=== PATIENT | female | born 2000 | race Caucasian/White ===

== ENCOUNTER 2024-12-08 11:20 | Inpatient (IN) | payer OTHER ==
[2024-12-08] MEDS: ELECTROLYTE-148 SOLN 1,000 ML IV SCH (13:00)
[2024-12-08 13:21] VITALS: BMI 43.0
[2024-12-08 14:26] LABS: ABSOLUTE IMMATURE GRANULOCYTES 0.13 x10^3/uL (0.0-0.031); BASOPHILS # 0.04 x10^3/uL (0.01-0.08); EOSINOPHIL % 0.4 % (0.7-5.8); EOSINOPHILS # 0.05 x10^3/uL (0.04-0.36); MCHC 33.3 g/dl (32.2-35.5); MEAN CELL VOLUME 88.3 fl (79.4-94.8); MEAN PLT VOLUME 12.2 fl (9.4-12.3); MONOCYTE # 0.62 x10^3/uL (0.24-0.86); MONOCYTE % 4.9 % (4.7-12.5); RDW 14.8 % (12.1-16.5)
[2024-12-08 14:45] LABS: INR 0.97 (0.83-1.09); PROTHROMBIN TIME (PATIENT) 10.6 SEC (9.7-13.0)
[2024-12-08 14:47] LABS: ACTIVATED PTT 31.6 SECONDS (25.2-36.5); GLUCOSE,RANDOM 75.0 mg/dL (74-106)
[2024-12-08 14:48] LABS: CO2 22.0 mmol/L (21-32)
[2024-12-08 14:53] LABS: CREATININE 0.56 mg/dL (0.55-1.3)
[2024-12-08] MEDS: OXYTOCIN 30 UNITS in 0.9% NS 30 UNIT/500 ML INFUS.BAG IVPB SCH (18:00)
[2024-12-08] MEDS ORDERED: OXYTOCIN 30 UNITS in 0.9% NS 30 UNIT/500 ML INFUS.BAG IVPB ONE (18:02)
[2024-12-08] MEDS ORDERED: OXYTOCIN 30 UNITS in 0.9% NS 30 UNIT/500 ML INFUS.BAG IVPB SCH (18:45)
[2024-12-08 20:20] LABS: HIV INTERPRETATION NEGATIVE (NEGATIVE)
[2024-12-08] MEDS ORDERED: FENTANYL/BUPIVACAINE/NS/PF - PCEA - 50 ML DISP.SYRIN EP ONE (23:45)
[2024-12-09] MEDS: FENTANYL/BUPIVACAINE/NS/PF - PCEA - 50 ML DISP.SYRIN EP SCH (00:15)
[2024-12-09] MEDS ORDERED: NALOXONE HCL 0.4 MG/ML VIAL IVPUSH PRN (00:33)
[2024-12-09] MEDS ORDERED: OXYTOCIN 20 UNITS in 0.9% NS 20 UNIT/1,000 ML INFUS.BAG IV ONE (02:32)
[2024-12-09] MEDS ORDERED: AMPICILLIN SODIUM 2 GM VIAL ONE (03:24)
[2024-12-09] MEDS ORDERED: FENTANYL/BUPIVACAINE/NS/PF - PCEA - 50 ML DISP.SYRIN EP ONE ×2 (03:24→06:22)
[2024-12-09] MEDS: AMPICILLIN - 2 GM in SODIUM CHLORIDE 100 ML IVPB ONE (03:48)
[2024-12-09] MEDS ORDERED: FENTANYL CITRATE/PF 50 MCG/ML VIAL ONE (09:55)
[2024-12-09] MEDS: METHYLERGONOVINE MALEATE 0.2 MG/1 ML AMP IM PRN (10:30)
[2024-12-09] MEDS ORDERED: LIDOCAINE HCL 1% PRESERVATIVE FREE - 30ML VIAL ONE (10:32)
[2024-12-09] MEDS ORDERED: IBUPROFEN (CALDOLOR) 800 MG/200 ML PREMIX BAGS IVPB ONE (10:34)
[2024-12-09] MEDS ORDERED: MISOPROSTOL 200 MCG TABLET ONE (10:35)
[2024-12-09] MEDS: IBUPROFEN (CALDOLOR) 800 MG/200 ML PREMIX BAGS IVPB ONE (10:40)
[2024-12-09] MEDS: MISOPROSTOL 200 MCG TABLET PR ONE (10:50)
[2024-12-09] MEDS: OXYTOCIN 20 UNITS in 0.9% NS 20 UNIT/1,000 ML INFUS.BAG IV SCH (11:00)
[2024-12-09] MEDS ORDERED: BISACODYL 10 MG SUPP.RECT RC PRN (11:13)
[2024-12-09] MEDS ORDERED: WITCH HAZEL 50% (TUCKS) 40 PAD/JAR PAD TP PRN (11:13)
[2024-12-09] MEDS ORDERED: BENZOCAINE 20% 57 GM BOTTLE TP PRN (11:13)
[2024-12-09] MEDS ORDERED: BENZOCAINE 28 GM HEMORRHOIDAL OINTMENT TP PRN (11:13)
[2024-12-09] MEDS: FERROUS SO4 325 MG TABLET (FP) PO SCH (13:56)
[2024-12-09] MEDS: ACETAMINOPHEN 325 MG TABLET (FP) PO PRN (13:56)
[2024-12-09] MEDS: SENNOSIDES/DOCUSATE COMBO (SENNA PLUS) TABLET (UD) PO PRN (21:46)
[2024-12-09] MEDS: IBUPROFEN 600 MG TABLET (FP) PO PRN (21:46)
[2024-12-10 08:25] LABS: ABSOLUTE IMMATURE GRANULOCYTES 0.22 x10^3/uL (0.0-0.031); BASOPHILS # 0.04 x10^3/uL (0.01-0.08); EOSINOPHIL % 0.2 % (0.7-5.8); EOSINOPHILS # 0.03 x10^3/uL (0.04-0.36); MCHC 32.9 g/dl (32.2-35.5); MEAN CELL VOLUME 88.7 fl (79.4-94.8); MEAN PLT VOLUME 12.2 fl (9.4-12.3); MONOCYTE # 1.01 x10^3/uL (0.24-0.86); MONOCYTE % 5.5 % (4.7-12.5); RDW 14.8 % (12.1-16.5)
[2024-12-10] MEDS: PRENATAL VITAMINS W/ FOLIC ACID TABLET (FP) PO SCH (09:21)
[2024-12-11 00:27] VITALS: RESP 18
[2024-12-11 08:56] VITALS: BP 120/77; PULSE 75; TEMP 97.9
== END 2024-12-11 12:35 | disposition home or self-care (01) | DRG 560 ==
LOC: JDEL 11:20 → JLDR 12:45 → J3W 12-09 13:09
PROVIDERS: ADMIT Obstetrics & Gynecology; ATTEND Obstetrics & Gynecology
PROC: 10E0XZZ Delivery of Products of Conception, External Approach (ICD-10-PCS; principal; 2024-12-09)
PROC: 0KQM0ZZ Repair Perineum Muscle, Open Approach (ICD-10-PCS; 2024-12-09)
PROC: 0W8NXZZ Division of Female Perineum, External Approach (ICD-10-PCS; 2024-12-09)
DX: O42.92 Full-term premature rupture of membranes, unspecified as to length of time between rupture and onset of labor (principal); O99.214 Obesity complicating childbirth; O70.1 Second degree perineal laceration during delivery; Z3A.39 39 weeks gestation of pregnancy; Z37.0 Single live birth
CPT/HCPCS: 36415; 59025; 59409; 80048; 85025; 85610; 85730; 86780; 86850; 86900; 86901; 87389